=== PATIENT | male | born 1960 | race Two or more races ===

== ENCOUNTER 2019-05-10 12:22 | Observation (INO) | payer BC, OTHER ==
[2019-05-10] VITALS (15 sets, daily range): BP systolic 111–127; BP diastolic 52–68
[~2019-05-10] VITALS: Ht 177.8 cm; Wt 85.0 kg
--- NOTE | 2019-05-10 12:38 | NUR ---
PT SENT FROM OFFICE FOR BLOOD TRANSFUSION FOR 05/04/19 HGB 4.8 HCT 19.1. PT DENIES BLOOD IN STOOL OR ANYWHERE ELSE, AND ONLY TIRED AT WORK WHEN EXERTING HIMSELF. [facility] FAMILY AT BEDSIDE. AWAITING ORDERS AT THIS TIME.
[2019-05-10 13:14] LABS: INTERNATIONAL NORMALIZED RATIO 1.03 (0.93-1.1); PROTHROMBIN TIME 10.8 Seconds (9.6-11.5)
[2019-05-10 13:18] LABS: ALBUMIN 3.3 g/dL (3.4-5.0); ANION GAP 3 mmol/L (5-15); CALCIUM 8.3 mg/dL (8.5-10.1); CHLORIDE 108 mmol/L (98-107)
[2019-05-10 13:23] LABS: MEAN CORPUSCULAR HEMOGLOBIN 16.2 pg (27.5-34.5); MEAN CORPUSCULAR VOLUME 57.3 fL (81-97); MEAN PLATELET VOLUME 10.9 fL (7.4-10.4); PLATELET COUNT 231 x10^3/uL (130-400); RED BLOOD COUNT 2.85 x10^6/uL (4.38-5.82)
[2019-05-10 13:24] LABS: % IRON SATURATION 3 % (20-55); ABSOLUTE RETICS # 0.03 x10^6/uL (0.5-1.5); ALANINE AMINOTRANSFERASE 93 U/L (12-78); ALKALINE PHOSPHATASE 68 U/L (45-117); BILIRUBIN,TOTAL 0.5 mg/dL (0.2-1.0); CREATININE 0.75 mg/dL (0.7-1.3); IRON LEVEL 12 mcg/dL (65-175); RED BLOOD COUNT 2.85 x10^6/uL (4.38-5.82); RETICULOCYTE COUNT % 1.05 % (0.5-1.5); TOTAL IRON BINDING CAPACITY 427 mcg/dL (250-450); TOTAL PROTEIN 7.3 g/dL (6.4-8.2)
[2019-05-10 13:28] LABS: MEAN CORPUSCULAR HGB CONC 28.3 g/dL (33.2-36.2)
--- NOTE | 2019-05-10 13:34 | NUR ---
PT RESTING COMFORTABLY ON GURNEY. FAMILY AT BEDSIDE.
--- NOTE | 2019-05-10 13:41 | NUR ---
BLOOD REQUEST SLIP SENT TO BLOOD BANK.
[2019-05-10 13:57] LABS: MD YES
[2019-05-10 14:05] LABS: BAND#(MANUAL) 0.03 x10^3/uL; BANDS%(MANUAL) 1 % (0-7); EOS#(MANUAL) 0.06 x10^3/uL (0.0-0.4); EOS% (MANUAL) 2 % (1-7); LYMPH#(MANUAL) 1.48 x10^3/uL (1-3.4); LYMPHS% (MANUAL) 51 % (22-44); MONOS#(MANUAL) 0.23 x10^3/uL (0.3-2.7); MONOS% (MANUAL) 8 % (2-9); NRBC % (MANUAL) 1 % (0-1); SEGS% (MANUAL) 38 % (42-75)
[2019-05-10 14:06] LABS: <PLATELET ESTIMATE> ADEQUATE; LARGE PLATELETS 1+
[2019-05-10 14:07] LABS: ANISOCYTOSIS 2+; HYPOCHROMIA 3+; MICROCYTOSIS 3+; OVALOCYTES 1+
[2019-05-10 14:09] LABS: HEMOGRAM NOTE RECHECKED
--- NOTE | 2019-05-10 14:20 | NUR ---
BLOOD TRANSFUSING STARTED AND VERIFIED WITH ANOTHER RN.
--- NOTE | 2019-05-10 15:36 | NUR ---
BLOOD TRANSFUSED WITHOUT S/SX OF REACTION. PT STATES HE FEELS BETTER. VSS.
[2019-05-10] MEDS: INSULIN LISPRO 100 UNITS/ML, PEN SQ-INSULIN SCH ×2 (16:00→21:36)
--- NOTE | 2019-05-10 16:30 | NUR ---
PT RESTING COMFORTABLY ON GURNEY. RACHID. FAMILY AT BEDSIDE.
--- NOTE | 2019-05-10 17:00 | NUR ---
DIET TRAY DELIVERED.
[2019-05-10] MEDS ORDERED: METF10007 PO ×2 (17:03→17:12)
--- NOTE | 2019-05-10 19:31 | NUR ---
SECOND BLOOD TRANSFUSION STARTED. VERIFIED BY SECOND RN. PT RESTING COMFORTABLY ON GURNEY.
--- NOTE | 2019-05-10 19:43 | NUR ---
REPORT GIVEN TO AURELIO MORRIS
[2019-05-11 01:03] VITALS: BP 118/62
[2019-05-11 01:25] VITALS: BP 114/65
[2019-05-11 04:01] LABS: ANION GAP 5 mmol/L (5-15); CHLORIDE 111 mmol/L (98-107); CREATININE 0.67 mg/dL (0.7-1.3)
[2019-05-11] MEDS: INSULIN LISPRO 100 UNITS/ML, PEN SQ-INSULIN SCH ×2 (07:00→11:00)
[2019-05-11 08:40] VITALS: BP 118/67
[2019-05-11] MEDS ORDERED: IRON1TAB60 PO (11:09)
== END 2019-05-11 12:44 | disposition home or self-care (01) ==
LOC: ED 14:20 → EDIP 14:42 → INTOOBSV 14:42 → 3N 19:59 → DCLOUNGE 05-11 12:40
PROVIDERS: ADMIT Internal Medicine; ATTEND Family Medicine
DX: K92.2 Gastrointestinal hemorrhage, unspecified (principal); E11.65 Type 2 diabetes mellitus with hyperglycemia; D72.819 Decreased white blood cell count, unspecified; D50.9 Iron deficiency anemia, unspecified; Z79.84 Long term (current) use of oral hypoglycemic drugs
CPT/HCPCS: 36415; 36430; 80048; 80053; 82962; 83540; 83550; 85014; 85018; 85025; 85045; 85610; 86850; 86900; 86923; 93005; 96372; 99284; G0378; J1815; P9016